=== PATIENT | male | born 2000 | race Native Hawaiian/Other Pacific Islander ===

== ENCOUNTER 2023-06-16 19:44 | Inpatient (IN) | payer OTHER ==
[~2023-06-16] VITALS: Ht 172.7 cm; Wt 120.5 kg
[2023-06-16 22:40] LABS: HEMATOCRIT 46.1 % (42.0-52.0); HEMOGLOBIN 15.6 g/dl (13.5-17.5); MEAN CORPUSCULAR HEMOGLOBIN 30.4 pg (27.0-33.0); MEAN CORPUSCULAR HGB CONC 33.8 g/dl (32.0-36.5); MEAN CORPUSCULAR VOLUME 89.9 fl (80.0-96.0); PLATELET COUNT, AUTOMATED 261 10^3/uL (150-450); RED BLOOD COUNT 5.13 10^6/uL (4.30-6.10); WHITE BLOOD COUNT 11.4 10^3/uL (4.0-10.0)
[2023-06-16 23:01] LABS: AMPHETAMINES LEVEL URINE NEGATIVE (NEGATIVE); BARBITURATES URINE NEGATIVE (NEGATIVE); PHENCYCLIDINE URINE NEGATIVE (NEGATIVE)
[2023-06-16 23:02] LABS: BENZODIAZEPINES URINE NEGATIVE (NEGATIVE); CANNABINOIDS URINE NEGATIVE (NEGATIVE); COCAINE METABOLITE URINE NEGATIVE (NEGATIVE); METHADONE URINE NEGATIVE (NEGATIVE); OPIATES URINE NEGATIVE (NEGATIVE)
[2023-06-16 23:03] LABS: ETHYL ALCOHOL (ETHANOL) < 0.003 % (0.000-0.010)
[2023-06-16 23:05] LABS: ACETAMINOPHEN LEVEL < 2.0 UG/ML (10.0-20.0); ALBUMIN 4.2 G/DL (3.2-5.2); ALKALINE PHOSPHATASE 80 U/L (46-116); ALT/SGPT 48 U/L (7.0-40); AST/SGOT 23 U/L (<34); BILIRUBIN,DIRECT 0.2 MG/DL (<0.4); BILIRUBIN,TOTAL 0.7 MG/DL (0.3-1.2); BLOOD UREA NITROGEN 11 MG/DL (9-23); CARBON DIOXIDE LEVEL 28 MMOL/L (20-31); CHLORIDE LEVEL 102 MMOL/L (98-107); CREATININE FOR GFR 0.88 MG/DL (0.70-1.30); GLOMERULAR FILTRATION RATE > 60.0 (>60); GLUCOSE, FASTING 89 MG/DL (60-100); POTASSIUM SERUM 3.7 MMOL/L (3.5-5.1); SALICYLATE LEVEL < 3.0 MG/DL (<30); SODIUM LEVEL 138 MMOL/L (136-145); TOTAL PROTEIN 7.5 G/DL (5.7-8.2)
[2023-06-16 23:08] LABS: THYROID STIMULATING HORMONE 2.135 uIU/ML (0.55-4.78)
[2023-06-16] MEDS ORDERED: HOME MED LIST COMPLETE! XX SCH (23:10)
[2023-06-17] MEDS ORDERED: traZODone 50 MG TAB PO PRN (12:10)
[2023-06-17] MEDS ORDERED: IBUPROFEN 400MG TAB PO PRN (12:10)
[2023-06-17] MEDS ORDERED: MAALOX 30 ML SUSP *UDC PO PRN (12:10)
[2023-06-17] MEDS ORDERED: diphenhydrAMINE 25MG CAP PO PRN (12:10)
[2023-06-17] MEDS ORDERED: MOM 30ML SUSPENSION UDC PO PRN (12:10)
[2023-06-17] MEDS ORDERED: ACETAMINOPHEN TAB 650MG DOSE (2X325MG) PO PRN (12:10)
[2023-06-17 14:22] VITALS: BP 139/92; TEMP 98.7; O2SAT 97
[2023-06-18 06:54] VITALS: BP 148/72; TEMP 97.6; O2SAT 97
[2023-06-18] MEDS ORDERED: NICOTINE 21MG/24HR 1 EA TRANSDERMAL TD SCH (09:00)
[2023-06-18 16:55] VITALS: BP 135/87; TEMP 98.2; O2SAT 96
[2023-06-19 06:35] VITALS: BP 140/77; TEMP 97.4; O2SAT 98
[2023-06-19 17:59] VITALS: BP 145/90; TEMP 97.3
[2023-06-20 06:27] VITALS: BP 133/84; TEMP 98; O2SAT 96
[2023-06-20] MEDS: FLUoxetine 10 MG CAP PO SCH (11:25)
[2023-06-20 17:33] VITALS: BP 145/81; TEMP 98.9; O2SAT 99
[2023-06-21 06:00] VITALS: BP 132/86; TEMP 97.6; O2SAT 96
[2023-06-21] MEDS ORDERED: SERTRALINE HCL 50 MG TAB PO SCH (09:00)
[2023-06-21] MEDS: FLUoxetine 10 MG CAP PO SCH (09:47)
[2023-06-21 18:26] VITALS: BP 145/86; TEMP 98; O2SAT 100
[2023-06-22 05:49] VITALS: BP 129/62; TEMP 97.5; O2SAT 97
[2023-06-22] MEDS: FLUoxetine 10 MG CAP PO SCH (09:49)
[2023-06-22 17:50] VITALS: BP 148/92; TEMP 98.2; O2SAT 97
[2023-06-23 07:00] VITALS: BP 139/84; TEMP 97.2; O2SAT 98
[2023-06-23] MEDS: FLUoxetine 10 MG CAP PO SCH (09:35)
[2023-06-23] MEDS ORDERED: FLUoxetine 10 MG CAP PO ONE (10:30)
[2023-06-23 18:21] VITALS: BP 136/90; TEMP 96.7; O2SAT 100
[2023-06-24 07:02] VITALS: BP 137/93; TEMP 97.8; O2SAT 97
[2023-06-24] MEDS ORDERED: FLUoxetine 10 MG CAP PO SCH (09:00)
[2023-06-24] MEDS: FLUoxetine 20MG CAP PO SCH (09:07)
[2023-06-24 18:01] VITALS: BP 126/73; TEMP 98
[2023-06-25 06:13] VITALS: BP 141/63; TEMP 97.5; O2SAT 100
[2023-06-25] MEDS: FLUoxetine 20MG CAP PO SCH (08:34)
[2023-06-25 18:00] VITALS: BP 138/78; TEMP 98.2; O2SAT 98
[2023-06-26 06:26] VITALS: BP 147/89; TEMP 97.9; O2SAT 97
[2023-06-26] MEDS: FLUoxetine 20MG CAP PO SCH (08:23)
[2023-06-26 18:00] VITALS: BP 144/96; TEMP 98.6; O2SAT 97
[2023-06-27 06:00] VITALS: BP 131/71; TEMP 97.8; O2SAT 100
[2023-06-27] MEDS: FLUoxetine 20MG CAP PO SCH (09:06)
[2023-06-27 17:57] VITALS: BP 127/90; TEMP 97.6; O2SAT 97
[2023-06-28 06:45] VITALS: BP 140/91; TEMP 96.8; O2SAT 99
[2023-06-28] MEDS: FLUoxetine 20MG CAP PO SCH (08:30)
[2023-06-28 16:24] VITALS: BP 143/88; TEMP 97.9; O2SAT 98
[2023-06-29 06:52] VITALS: BP 136/73; TEMP 97; O2SAT 95
[2023-06-29] MEDS: FLUoxetine 20MG CAP PO SCH (08:58)
[2023-06-29 16:37] VITALS: BP 141/78; TEMP 98; O2SAT 96
[2023-06-30 06:18] VITALS: BP 112/82; TEMP 97.5; O2SAT 98
[2023-06-30] MEDS: FLUoxetine 20MG CAP PO SCH (08:29)
[2023-06-30] MEDS ORDERED: FLUO20CA22 PO (13:35)
[2023-06-30 17:33] VITALS: BP 148/94; TEMP 97.3; O2SAT 96
[2023-07-01 06:24] VITALS: BP 136/63; TEMP 97.4; O2SAT 97
[2023-07-01] MEDS: FLUoxetine 20MG CAP PO SCH (08:31)
== END 2023-07-01 10:35 | disposition home or self-care (01) | DRG 885 ==
LOC: M ED 19:44 → M PSY 06-17 12:10 → M ED INP 06-17 12:10 → M PSY 06-17 14:22
PROVIDERS: ADMIT Student in an Organized Health Care Education/Training Program; ATTEND Student in an Organized Health Care Education/Training Program
DX: F33.2 Major depressive disorder, recurrent severe without psychotic features (principal); R45.851 Suicidal ideations; F43.10 Post-traumatic stress disorder, unspecified; Z62.810 Personal history of physical and sexual abuse in childhood; E73.9 Lactose intolerance, unspecified; G47.00 Insomnia, unspecified

== ENCOUNTER 2023-08-31 10:56 | Emergency (ER) | payer OTHER ==
[~2023-08-31] VITALS: Ht 175.3 cm; Wt 122.3 kg
[2023-08-31 10:56] VITALS: TEMP 99.1; O2SAT 97
[~2023-08-31 10:56] MED LIST: FLUO20CA22 PO
[2023-08-31] MEDS ORDERED: NS 1,000 ML IV ONE (14:05)
[2023-08-31] MEDS ORDERED: KETOROLAC 30 MG/ML 1ML VIAL IV ONE (14:05)
[2023-08-31 14:49] LABS: BASO % 0.5 % (0.0-1.0); EOS # 0.1 10^3/uL (0.0-0.5); EOS % 0.9 % (0.0-3.0); HEMOGLOBIN 16.8 g/dl (13.5-17.5); LYMPH # 1.2 10^3/uL (1.5-5.0); LYMPH % 17.7 % (24.0-44.0); MEAN CORPUSCULAR HEMOGLOBIN 31.3 pg (27.0-33.0); MEAN CORPUSCULAR VOLUME 89.6 fl (80.0-96.0); MONO # 0.8 10^3/uL (0.0-0.8); MONO % 11.6 % (2.0-8.0); NEUTROPHILS # 4.6 10^3/uL (1.5-8.5); PLATELET COUNT, AUTOMATED 170 10^3/uL (150-450); RED BLOOD COUNT 5.36 10^6/uL (4.30-6.10); WHITE BLOOD COUNT 6.6 10^3/uL (4.0-10.0)
[2023-08-31 15:03] LABS: INR 1.13; PROTHROMBIN TIME 14.1 SECONDS (12.5-14.5)
[2023-08-31 15:04] LABS: PARTIAL THROMBOPLASTIN TIME 32.4 SECONDS (24.8-34.2)
[2023-08-31 15:07] LABS: D-DIMER QUANT 0.95 ug/mL (<0.5)
[2023-08-31 15:18] LABS: CK-MB VALUE MASS < 1.0 NG/ML (<3.6)
[2023-08-31 15:19] LABS: BLOOD UREA NITROGEN 9 MG/DL (9-23); CALCIUM LEVEL 8.9 MG/DL (8.5-10.1); CARBON DIOXIDE LEVEL 27 MMOL/L (20-31); CHLORIDE LEVEL 103 MMOL/L (98-107); CREATININE FOR GFR 0.82 MG/DL (0.70-1.30); GLOMERULAR FILTRATION RATE > 60.0 (>60); GLUCOSE, FASTING 89 MG/DL (60-100); POTASSIUM SERUM 4.1 MMOL/L (3.5-5.1); SODIUM LEVEL 136 MMOL/L (136-145)
[2023-08-31 15:20] LABS: CPK CREATINE PHOSPHOKINASE 303 U/L (46-171); MB/CK RELATIVE INDEX 0.33 (< OR =4)
[2023-08-31 15:22] VITALS: BP 146/82
[2023-08-31] MEDS ORDERED: ISOVUE-370 76% 100ML VIAL As Ordered ONE (15:28)
[2023-08-31] MEDS ORDERED: NAPR-837 PO (16:00)
== END 2023-08-31 16:11 | disposition home or self-care (01) ==
LOC: M ED 13:20
DX: R07.9 Chest pain, unspecified (principal); R03.0 Elevated blood-pressure reading, without diagnosis of hypertension; F17.200 Nicotine dependence, unspecified, uncomplicated; Z79.899 Other long term (current) drug therapy
CPT/HCPCS: 71046; 71275; 80048; 82550; 82553; 84484; 85025; 85379; 85610; 85730; 93005; 96361; 96374; 99284; J1885; Q9967